=== PATIENT | female | born 1975 | race African-American/Black ===

== ENCOUNTER 2017-09-27 19:23 | Emergency (ER) | payer BC ==
[~2017-09-27] VITALS: Ht 172.7 cm; Wt 120.0 kg
[2017-09-27 21:53] VITALS: BP 147/70
== END 2017-09-27 22:56 | disposition home or self-care (01) ==
LOC: ER 22:23
DX: S16.1XXA Strain of muscle, fascia and tendon at neck level, initial encounter (principal); V49.49XA Driver injured in collision with other motor vehicles in traffic accident, initial encounter; Y93.89 Activity, other specified; Y92.410 Unspecified street and highway as the place of occurrence of the external cause; Z88.8 Allergy status to other drugs, medicaments and biological substances
CPT/HCPCS: 99283